=== PATIENT | male | born 1985 | race Caucasian/White ===

== ENCOUNTER 2017-05-08 18:05 | Inpatient (IN) | payer MEDICAID, OTHER ==
[~2017-05-08] VITALS: Ht 160 cm; Wt 67.1 kg
[2017-05-08] MEDS ORDERED: ONDANSETRON 4 MG INJ IV STA (19:45)
[2017-05-08] MEDS ORDERED: KETOROLAC 30 MG INJ IV STA (19:45)
--- NOTE | 2017-05-08 19:52 | ERD ---
ER Documentation Chief Complaint Chief Complaint abdominal pain + nausea,vomiting and diarrhea today HPI 32-year-old male presents emergency department for abdominal pain, nausea and vomiting that started today. Patient stated that his abdominal pain started to his epigastric area then now to his right lower abdominal area. He also complains of discomfort on walking due to his right lower abdominal pain. Denies headache, dizziness, blurred vision, neck pain, throat pain, difficulty swallowing, shoulder pain, chest pain, difficulty breathing when lying flat, coughing, constipation, urinary symptoms, loss of bowel and bladder control, recent travel, recent long travel, recent exposure to any illness, recent changes in diet, recent antibiotic use in the last 3 months, fever, chills. ROS All systems reviewed and are negative except as per history of present illness. Allergies Allergies: Coded Allergies: No Known Allergy (Unverified , 05/08/17) PMhx/Soc Medical and Surgical Hx: pt denies Medical Hx, pt denies Surgical Hx Hx Alcohol Use: No Hx Substance Use: No Hx Tobacco Use: No Smoking Status: Never smoker Physical Exam Vitals Vital Signs Date Time Temp Pulse Resp B/P Pulse Ox O2 Delivery O2 Flow Rate FiO2 05/08/17 18:09 98.5 78 18 124/82 98 Physical Exam Const: Alert. Awake. Not in respiratory or acute distress. Head: Atraumatic Eyes: Normal Conjunctiva ENT: Normal External Ears, Nose and Mouth. Neck: Full range of motion..~ No meningismus. Resp: Clear to auscultation bilaterally Cardio: Regular rate and rhythm, no murmurs Abd: Soft, non distended. Normal bowel sounds. There is no right upper/ epigastric/left upper/left lower abdominal tenderness and likely palpation. There is right lower abdominal tenderness to light and deep palpation. Positive on Rovsing sign. Positive on Peterson sign ([place] test). Skin: No petechiae or rashes Back: No midline or flank tenderness. No CVA tenderness. Ext: No cyanosis, or edema Neur: Awake and alert. No neurological deficits. Psych: Normal Mood and Affect Result Diagram: 05/08/17201405/08/172014 Results 24 hrs Laboratory Tests Test 05/08/17 20:07 05/08/17 20:15 Urine Color YELLOW Urine Clarity CLEAR Urine pH 5.0 [address] [place] 1.034 Urine Ketones NEGATIVEmg/dL Urine Nitrite NEGATIVEmg/dL Urine Bilirubin NEGATIVEmg/dL Urine Urobilinogen NEGATIVEmg/dL Urine Leukocyte Esterase NEGATIVELeu/ul Urine Microscopic RBC 2/HPF Urine Microscopic WBC 3/HPF Urine Mucus MODERATE/HPF Urine Hemoglobin NEGATIVEmg/dL Urine Glucose NEGATIVEmg/dL Urine Total Protein 1+mg/dl White Blood Count 14.910^3/ul Red Blood Count 5.2010^6/ul Hemoglobin 15.2g/dl Hematocrit 44.3% Mean Corpuscular Volume 85.2fl Mean Corpuscular Hemoglobin 29.2pg Mean Corpuscular Hemoglobin Concent 34.3g/dl Red Cell Distribution Width 12.6% Platelet Count 37616^3/UL Mean Platelet Volume 11.3fl Neutrophils % 91.0% Lymphocytes % 4.8% Monocytes % 3.7% Eosinophils % 0.0% Basophils % 0.1% Nucleated Red Blood Cells % 0.0/100WBC Neutrophils # 13.610^3/ul Lymphocytes # 0.710^3/ul Monocytes # 0.610^3/ul Eosinophils # 0.010^3/ul Basophils # 0.010^3/ul Nucleated Red Blood Cells # 0.010^3/ul Prothrombin Time 12.7Sec Prothrombin Time Ratio 1.0 INR International Normalized Ratio 0.94 Activated Partial Thromboplast Time 24.7Sec Sodium Level 141mmol/L Potassium Level 4.0mmol/L Chloride Level 99mmol/L Carbon Dioxide Level 29mmol/L Anion Gap 17 Blood Urea Nitrogen 20mg/dl Creatinine 0.82mg/dl Glucose Level 113mg/dl Calcium Level 9.6mg/dl Total Bilirubin 0.7mg/dl Direct Bilirubin 0.00mg/dl Indirect Bilirubin 0.7mg/dl Aspartate Amino Transf (AST/SGOT) 34IU/L Alanine Aminotransferase (ALT/SGPT) 31IU/L Alkaline Phosphatase 81IU/L Total Protein 7.9g/dl Albumin 4.8g/dl Globulin 3.10g/dl Albumin/Globulin Ratio 1.54 Amylase Level 63U/L Lipase 33U/L Current Medications Medications (Trade) Dose Ordered Sig/Ingrid Route PRN Reason Start Time Stop Time Status Last Admin Dose Admin Sodium Chloride (NS) 1,000 ml @ 1,000 mls/hr Q1H ONCE IV 05/08/17 20:00 05/08/17 20:59 DC 05/08/17 20:18 Ondansetron HCl (Zofran Inj) 4 mg ONCE STAT IV 05/08/17 19:45 05/08/17 19:49 DC 05/08/17 20:18 Ketorolac Tromethamine (Toradol) 30 mg ONCE STAT IV 05/08/17 19:45 05/08/17 19:49 DC 05/08/17 20:17 IV Flush 10 ml 10 ml STK-MED ONCE .ROUTE 05/08/17 21:02 05/08/17 21:03 DC 05/08/17 21:21 Sodium Chloride (NS) 100 ml @ ud STK-MED ONCE .ROUTE 05/08/17 21:02 05/08/17 21:03 DC 05/08/17 21:22 Iohexol (Omnipaque 300mg/ ml) 150 ml STK-MED ONCE .ROUTE 05/08/17 21:02 05/08/17 21:03 DC 05/08/17 21:22 Morphine Sulfate 4 mg 4 mg ONCE STAT IV 05/08/17 22:17 05/08/17 22:20 DC Piperacillin Sod/ Tazobactam Sod 50 ml @ 100 mls/hr ONCE STAT IVPB 05/08/17 22:17 05/08/17 22:46 Sodium Chloride (NS) 1,000 ml @ 75 mls/hr [id number] IV 05/08/17 22:30 Procedures/MDM Urinalysis: Reviewed. Blood works: Leukocytosis at 14.9. CT of the abdomen and pelvis with IV contrast: Tendon fluid-filled intrathecal appendix with infiltration of surrounding fat. Findings are suspicious for an acute nonruptured appendicitis. Treatment: IV insertion. Normal saline IV. Toradol IV. Zofran IV. Morphine IV. Normal saline 75 cc an hour. Zosyn 3.375 g IV. Kept n.p.o. Reevaluation: Relieve the pain. Final diagnosis: Appendicitis. Case and diagnostic test results was discussed with supervising emergency room physician, Dr. Kin Méndez who agreed with my medical decision making to admit the patient for appendicitis. He also stated that he will processed admission and will call the admitting physician and her surgeon. Departure Diagnosis: Primary Impression: Appendicitis KOJO CRANDALL May 08, 2017 19:52
[2017-05-08] MEDS ORDERED: SOD CHLORIDE 0.9% 1,000 ML IV ONE (20:00)
[2017-05-08 20:26] LABS: ADD UMIC YES; UR ASCORBIC ACID 40 mg/dL (NEGATIVE); UR BILIRUBIN (Dip) NEGATIVE (NEGATIVE); UR BLOOD (Dip) NEGATIVE (NEGATIVE); UR CLARITY CLEAR (CLEAR); UR COLOR YELLOW (YELLOW); UR GLUCOSE (Dip) NEGATIVE (NEGATIVE); UR KETONES (Dip) NEGATIVE (NEGATIVE); UR LEUKOCYTE ESTERASE (Dip) NEGATIVE Leu/ul (NEGATIVE); UR MUCUS MODERATE /HPF (NONE SEEN); UR NITRITE (Dip) NEGATIVE (NEGATIVE); UR RBC 2 /HPF (0-5); UR SPECIFIC GRAVITY (Dip) 1.034 (1.003-1.030); UR TOTAL PROTEIN (Dip) 1+ mg/dl (NEGATIVE); UR UROBILINOGEN (Dip) NEGATIVE (NEGATIVE)
[2017-05-08 20:34] LABS: BASOPHILS % 0.1 % (0.0-2.0); HEMATOCRIT 44.3 % (42.0-52.0); HEMOGLOBIN 15.2 g/dl (14.0-18.0); LYMPHOCYTES # 0.7 10^3/ul (0.8-2.9); LYMPHOCYTES % 4.8 % (15.0-51.0); MEAN CORPUSCULAR HEMOGLOBIN 29.2 pg (29.0-33.0); MEAN CORPUSCULAR HGB CONC 34.3 g/dl (32.0-37.0); MEAN CORPUSCULAR VOLUME 85.2 fl (82.0-101.0); MEAN PLATELET VOLUME 11.3 fl (7.4-10.4); MONOCYTE # 0.6 10^3/ul (0.3-0.9); MONOCYTES % 3.7 % (0.0-11.0); NEUTROPHIL # 13.6 10^3/ul (1.6-7.5); PLATELET COUNT 237 10^3/UL (140-415); RED CELL DISTRIBUTION WIDTH 12.6 % (11.5-14.5); WHITE BLOOD COUNT 14.9 10^3/ul (4.8-10.8)
[2017-05-08 20:49] LABS: INR 0.94; PROTIME 12.7 Sec (11.9-14.9)
[2017-05-08 20:50] LABS: PARTIAL THROMBOPLASTIN TIME 24.7 Sec (25.0-35.0)
[2017-05-08 20:55] LABS: ALBUMIN 4.8 g/dl (3.3-4.9); ALBUMIN/GLOBULIN RATIO 1.54; BILIRUBIN,INDIRECT 0.7 mg/dl (0-1.1); BILIRUBIN,TOTAL 0.7 mg/dl (0.2-1.3); CALCIUM 9.6 mg/dl (8.4-10.2); CREATININE 0.82 mg/dl (0.61-1.24); TOTAL PROTEIN 7.9 g/dl (6.1-8.1)
[2017-05-08] MEDS ORDERED: IOHEXOL 300MG/ML 150 ML BTL ONE (21:02)
[2017-05-08] MEDS ORDERED: SOD CHLORIDE 0.9% 100 ML ONE (21:02)
--- NOTE | 2017-05-08 21:40 | RADRPT ---
PROCEDURE: CT abdomen and pelvis with contrast. CLINICAL INDICATION: Abdominal Pain TECHNIQUE: CT scan of the abdomen and pelvis without oral contrast was performed and is reconstruc wen at 2.5 mm contiguous axial intervals from the dome of the diaphragm to the inferior pubic rami.. The patient was scanned without intravenous contrast. Sagittal and coronal reformatted images wer e obtained from the axial source images. The calculated radiation dose measures the 397 mGy centimet ers. The CTDI measures 7.5 mGy. Individualized dose optimization technique was used for the performance of this exam. This included 1. Automated exposure control. 2. Adjustment of the mA and / or kV according to the patient's size. 3. Use of iterative reconstructed technique. COMPARISON: None FINDINGS: The lung bases are clear of any infiltrate or nodule. No effusion is seen. The liver is of normal size, contour and attenuation with no mass or ductal dilatation. No gallston es are visualized. No splenic, adrenal or pancreatic abnormalities present. Kidneys enhance symmetrically and are of normal size and contour. No hydronephrosis, calculus or m asses seen. Ureters are of normal course and caliber with no stone. No bladder mass or stone is pr esent. Prostate and seminal vesicles are normal. There is no aneurysm. No adenopathy is present. No bowel mass or obstruction is present. The appendix is located inferior to the cecum. It is dis tended measuring 10 mm in diameter and there is mural enhancement. There is mild infiltration of the surrounding periappendiceal fat. No calcified appendicolith is seen and there is no pneumoperitoneu m.. No phlegmon, ascites or pneumoperitoneum is visualized. The osseous structures are intact. IMPRESSION: Distended fluid filled infracecal appendix with infiltration of surrounding fat. Findings are suspic ious for a acute non ruptured appendicitis. .Jasvir Norman MD, MD Date Time Electronically viewed and signed by .Jasvir Norman MD, on 05/08/2017 21:40 .A/
[2017-05-08] MEDS ORDERED: morphine 4 MG/ML VIAL IV STA (22:17)
[2017-05-08] MEDS ORDERED: PIPER-TAZO 3.375 GM IV (PMX) 50 ML IVPB STA (22:17)
[2017-05-08] MEDS: SOD CHLORIDE 0.9% 1,000 ML IV SCH (22:40)
[2017-05-09] VITALS (22 sets, daily range): BP systolic 99–126; BP diastolic 58–76; PULSE 66–82; RESP 16–24; TEMP 98; Ht 160 cm; Wt 67.1 kg
[2017-05-09] MEDS: SOD CHLORIDE 0.9% 1,000 ML IV SCH ×3 (00:37→13:07)
[2017-05-09] MEDS ORDERED: morphine 2 MG INJ IV PRN ×2 (01:00→19:30)
[2017-05-09] MEDS ORDERED: DOCUSATE SODIUM 100 MG CAP PO PRN (01:00)
[2017-05-09] MEDS ORDERED: BISACODYL (EC) 5 MG TAB PO PRN (01:00)
[2017-05-09] MEDS ORDERED: ACETAMINOPHEN 325 MG TAB PO PRN (01:00)
[2017-05-09] MEDS ORDERED: NACL 0.9% 3 ML SYG IV SCH (01:00)
--- NOTE | 2017-05-09 03:41 | HP ---
Date/Time of Note Date/Time of Note DATE: 05/09/17 TIME: 03:38 Assessment/Plan VTE Prophylaxis VTE Prophylaxis Intervention: SCD's Assessment/Plan Chief Complaint/Hosp Course This is a 32-year-old male being admitted to the [facility] floor for: #1 acute appendicitis: At the current time we will keep the patient n.p.o. Provide the patient with IV fluid maintenance with normal saline, pain control with IV pain medications, Zosyn every 6 hours, the on-call surgeon has been contacted via the ED. #2 questionable history of enlarged heart: Patient is a current time denies any issues. He states that he works out/exercises without any issues. He can walk up and down stairs and perform various exercises and activities without any difficulty or chest pain or shortness of breath.. Denies any chest pain or shortness of breath during vigorous activity. Further workup indicated at this time, I feel this can be managed as an outpatient if indicated. He does not have any chest pain or shortness of breath or or any signs of cardiac dysfunction clinically at this time. #3 DVT and GI prophylaxis: SCDs, no GI prophylaxis indicated Further treatment strategy will be implemented as per the clinical course Problems: HPI/ROS Admit Date/Time Admit Date/Time May 08, 2017 at 22:59 Hx of Present Illness CC: Abdominal, pain nausea vomiting This is a 32-year-old male presents emergency department for abdominal pain, nausea and vomiting that started today. Patient stated that his abdominal pain started to his epigastric area then now to his right lower abdominal area. He also complains of discomfort on walking due to his right lower abdominal pain. Denies headache, dizziness, blurred vision, neck pain, throat pain, difficulty swallowing, shoulder pain, chest pain, difficulty breathing when lying flat, coughing, constipation, urinary symptoms, loss of bowel and bladder control, recent travel, recent long travel, recent exposure to any illness, recent changes in diet, recent antibiotic use in the last 3 months, fever, chills. Allergies: NKDA Medications: ROS Const: As per HPI Eyes : No pain discharge or redness or change in visual acuity ENT: No pain, sore throat, congestion, congestion, dysphagia or discharge Respiratory: No shortness of breath, cough, sputum, wheezing, or pleuritic pain Cardiovascular: No chest pain, palpitation, PND, or edema GI : As per HPI Genitourinary: No dysuria, hematuria, flank pain , discharge or CVA tenderness Musculoskeletal: No joint pain, back pain, neck pain, restricted range of motion in neck or joints Skin: No rash, bruising or hives Neuro: No headache, dizziness, syncope, seizure, focal weakness Endocrine: No polyuria, polydipsia, temperature intolerance Psych: No hallucination, depression, anxiety or suicidal ideation PMH/Family/Social Past Medical History Enlarged heart? Past Surgical History Past Surgical Hx: no surgical history Family History Significant Family History: no pertinent family hx Social History Alcohol Use: none Smoking Status: Never smoker Drug Use: none Exam/Review of Systems Vital Signs Vitals Vital Signs Date Time Temp Pulse Resp B/P Pulse Ox O2 Delivery O2 Flow Rate FiO2 05/09/17 00:57 98.8 64 16 109/68 98 05/09/17 00:33 Room Air Exam Exam General: She is currently lying in bed in no acute distress. His pain at this time is controlled. HEENT: Atraumatic, normocephalic. The pupils are equal, round and reactive. Extraocular motor are intact Neck: Supple with full range of motion. No rigidity or meningismus Chest: Nontender Lungs: Clear to auscultation bilaterally no crackles rales or wheezing Heart: Normal S1-S2, Regular rhythm and rate. No overt murmurs appreciated Abdomen: Soft, tenderness to palpation of the right lower quadrant, abdomen nondistended, normal bowel sounds. Extremities: Normal to inspection, no edema no cyanosis Neurologic: Normal mental status, speech normal, cranial nerves II through XII are intact, motor and sensory are intact, no focal weakness Additional Comments PROCEDURE: CT abdomen and pelvis with contrast. CLINICAL INDICATION: Abdominal Pain TECHNIQUE: CT scan of the abdomen and pelvis without oral contrast was performed and is reconstructed at 2.5 mm contiguous axial intervals from the dome of the diaphragm to the inferior pubic rami.. The patient was scanned without intravenous contrast. Sagittal and coronal reformatted images were obtained from the axial source images. The calculated radiation dose measures the 397 mGy centimeters. The CTDI measures 7.5 mGy. Individualized dose optimization technique was used for the performance of this exam. This included 1. Automated exposure control. 2. Adjustment of the mA and / or kV according to the patient's size. 3. Use of iterative reconstructed technique. COMPARISON: None FINDINGS: The lung bases are clear of any infiltrate or nodule. No effusion is seen. The liver is of normal size, contour and attenuation with no mass or ductal dilatation. No gallstones are visualized. No splenic, adrenal or pancreatic abnormalities present. Kidneys enhance symmetrically and are of normal size and contour. No hydronephrosis, calculus or masses seen. Ureters are of normal course and caliber with no stone. No bladder mass or stone is present. Prostate and seminal vesicles are normal. There is no aneurysm. No adenopathy is present. No bowel mass or obstruction is present. The appendix is located inferior to the cecum. It is distended measuring 10 mm in diameter and there is mural enhancement. There is mild infiltration of the surrounding periappendiceal fat. No calcified appendicolith is seen and there is no pneumoperitoneum.. No phlegmon, ascites or pneumoperitoneum is visualized. The osseous structures are intact. IMPRESSION: Distended fluid filled infracecal appendix with infiltration of surrounding fat. Findings are suspicious for a acute non ruptured appendicitis. .Jasvir Norman MD, MD Date Time Electronically viewed and signed by .Jasvir Norman MD, MD on 05/08/2017 21: 40 .A/ CC: KOJO CRANDALL Labs Result Diagram: 05/08/17201405/08/172014 Medications Medications Current Medications Sodium Chloride 1,000 ml @ 75 mls/hr [id number] IV Last administered on t 22:40; Admin Dose 75 MLS/HR; Start 05/08/17 at 22:30 Sodium Chloride (NS) 1,000 ml @ 80 mls/hr [id number] IV ; Start 05/09/17 at 00:37 Acetaminophen (Tylenol Tab) 650 mg Q6H PRN PO PAIN LEVEL 1-3 OR FEVER; Start 05/09/17 at 01:00 Morphine Sulfate (morphine) 2 mg Q4H PRN IV SEVERE PAIN LEVEL 7-10; Start 12/ 18/17 at 01:00 Docusate Sodium (Colace) 100 mg Q12H PRN PO CONSTIPATION; Start 05/09/17 at 01 :00 Bisacodyl 5 mg 5 mg DAILY PRN PO CONSTIPATION; Start 05/09/17 at 01:00 Piperacillin Sod/ Tazobactam Sod (Zosyn 3.375gm/ 50 ml (Pmx)) 50 ml @ 100 mls/ hr Q6 IVPB ; Start 05/09/17 at 06:00 MOLLY KELLEY May 09, 2017 03:41
[2017-05-09] MEDS: PIPER-TAZO 3.375 GM IV (PMX) 50 ML IVPB SCH ×4 (05:17→23:49)
[2017-05-09] MEDS ORDERED: ROCURONIUM 50 MG INJ ONE (07:00)
[2017-05-09] MEDS ORDERED: LIDOCAINE 2% (SDV) 5 ML INJ ONE (07:00)
--- NOTE | 2017-05-09 12:27 | PN ---
Date/Time of Note Date/Time of Note DATE: 05/09/17 TIME: 12:24 Assessment/Plan VTE Prophylaxis VTE Prophylaxis Intervention: ambulation Lines/Catheters IV [facility]): Peripheral IV Assessment/Plan Chief Complaint/Hosp Course 32-year-old male with no significant past medical history, presented to the emergency room for evaluation of sudden onset of epigastric and right lower quadrant pain who also noted with acute appendicitis. 1. Acute appendicitis. Status: Acute -Surgery on board and plan is laparoscopic versus open appendectomy today at 5 PM. -Continue n.p.o. status, IV fluids, pain meds and IV antibiotics. -Postoperative diet, antibiotics and anticoagulation per surgery 2. Leukocytosis secondary to #1. Status: Acute -Treatment as above. Patient was seen in collaboration with Problems: Subjective 24 Hr Interval Summary Free Text/Dictation Patient continued to have right lower quadrant abdominal pain. No nausea, vomiting or fevers. Patient is scheduled for laparoscopic versus open appendectomy today at 5 PM. Exam/Review of Systems Vital Signs Vitals Vital Signs Date Time Temp Pulse Resp B/P Pulse Ox O2 Delivery O2 Flow Rate FiO2 05/09/17 08:06 98.5 63 18 99/58 97 05/09/17 05:17 Room Air Intake and Output 05/08/17 05/08/17 05/09/17 15:00 23:00 07:00 Intake Total 550 ml Output Total 420 ml Balance 130 ml Exam General: Well developed,adequately built young male, not in any acute distress . HEENT: Normocephalic, Atraumatic, No laceration or hematoma; Eyes: PEERL, Conjunctiva clear, Anicteric sclera Neck: Supple without any lymphadenopathy, nontender, no JVD, no carotid bruits, trachea midline, no thyromegaly Cardiac: S1, S2 auscultated, regular rhythm and rate, no mumurs or gallop Pulmonary: Normal respiratory effort. Chest clear to auscultation bilaterally, no adventitious breath sounds GI: With epigastric and right lower quadrant tenderness. Otherwise abdomen normal to inspection. Soft, non- distended, no masses, no rebound tenderness or guarding. Bowel sounds active on all four quadrants Genitourinary: Deferred Extremities: No cyanosis, clubbing, or edema. Pulses [2+] bilaterally. Full ROM on all four extremities. No focal weakness appreciated. Neurologic: Alert to person, place, time, and situation. Affect appropriate, intact sensation. Skin: Clean,dry, and intact. No ecchymosis, no rashes, or lesions Results Result Diagram: 05/08/17201405/08/172014 Results 24 hrs Laboratory Tests Test 05/08/17 20:07 05/08/17 20:15 Urine Color YELLOW Urine Clarity CLEAR Urine pH 5.0 Urine Specific [place] 1.034 H Urine Ketones NEGATIVE Urine Nitrite NEGATIVE Urine Bilirubin NEGATIVE Urine Urobilinogen NEGATIVE Urine Leukocyte Esterase NEGATIVE Urine Microscopic RBC 2 Urine Microscopic WBC 3 Urine Mucus MODERATE Urine Hemoglobin NEGATIVE Urine Glucose NEGATIVE Urine Total Protein 1+ H White Blood Count 14.9 H Red Blood Count 5.20 Hemoglobin 15.2 Hematocrit 44.3 Mean Corpuscular Volume 85.2 Mean Corpuscular Hemoglobin 29.2 Mean Corpuscular Hemoglobin Concent 34.3 Red Cell Distribution Width 12.6 Platelet Count 237 Mean Platelet Volume 11.3 H Neutrophils % 91.0 H Lymphocytes % 4.8 L Monocytes % 3.7 Eosinophils % 0.0 Basophils % 0.1 Nucleated Red Blood Cells % 0.0 Neutrophils # 13.6 H Lymphocytes # 0.7 L Monocytes # 0.6 Eosinophils # 0.0 Basophils # 0.0 Nucleated Red Blood Cells # 0.0 Prothrombin Time 12.7 Prothrombin Time Ratio 1.0 INR International Normalized Ratio 0.94 Activated Partial Thromboplast Time 24.7 L Sodium Level 141 Potassium Level 4.0 Chloride Level 99 Carbon Dioxide Level 29 Anion Gap 17 H Blood Urea Nitrogen 20 Creatinine 0.82 Glucose Level 113 Calcium Level 9.6 Total Bilirubin 0.7 Direct Bilirubin 0.00 Indirect Bilirubin 0.7 Aspartate Amino Transf (AST/SGOT) 34 Alanine Aminotransferase (ALT/SGPT) 31 Alkaline Phosphatase 81 Total Protein 7.9 Albumin 4.8 Globulin 3.10 Albumin/Globulin Ratio 1.54 Amylase Level 63 Lipase 33 Medications Medications Current Medications Sodium Chloride 1,000 ml @ 75 mls/hr [id number] IV Last administered on t 11:41; Admin Dose 75 MLS/HR; Start 05/08/17 at 22:30 Sodium Chloride (NS) 1,000 ml @ 80 mls/hr [id number] IV ; Start 05/09/17 at 00:37 Acetaminophen (Tylenol Tab) 650 mg Q6H PRN PO PAIN LEVEL 1-3 OR FEVER; Start 05/09/17 at 01:00 Morphine Sulfate (morphine) 2 mg Q4H PRN IV SEVERE PAIN LEVEL 7-10; Start at 01:00 Docusate Sodium (Colace) 100 mg Q12H PRN PO CONSTIPATION; Start 05/09/17 at 01 :00 Bisacodyl 5 mg 5 mg DAILY PRN PO CONSTIPATION; Start 05/09/17 at 01:00 Piperacillin Sod/ Tazobactam Sod (Zosyn 3.375gm/ 50 ml (Pmx)) 50 ml @ 100 mls/ hr Q6 IVPB Last administered on 05/09/17t 11:41; Admin Dose 100 MLS/HR; Start 05/09/17 at 06:00 FELIX HERNANDEZ NP May 09, 2017 12:27
--- NOTE | 2017-05-09 18:05 | CONS ---
Date/Time of Note Date/Time of Note DATE: 05/09/17 TIME: 18:02 Assessment/Plan Assessment/Plan Additional Assessment/Plan Acute appendicitis Plan: Laparoscopic appendectomy possible open. I discussed the procedure, outcomes, expectations, alternatives and risks in detail with the patient who has an excellent understanding of the nature of his illness and agrees to the proposed plan of therapy as outlined. Consultation Date/Type/Reason Admit Date/Time May 08, 2017 at 22:59 Date of Consultation: May 09, 2017 Reason for Consultation Acute appendicitis Hx of Present Illness The patient is an otherwise healthy 32-year-old male who presents to the emergency room with a 1 day history of abdominal pain which intensified in severity, then localized to the right lower quadrant. In the emergency room he was noted to have a tender right lower quadrant, and elevated white blood cell count, and a CT which was compatible with acute appendicitis. The patient is admitted and surgical consultation is requested in that regard. Constitutional: no complaints Eyes: no complaints ENT: no complaints Respiratory: no complaints Cardiovascular: no complaints Gastrointestinal: no complaints, pain (Right lower quadrant) Genitourinary: no complaints Skin: no complaints Neurologic: no complaints Endocrine: no complaints Lymphatic: no complaints Psychological: no complaints Immunologic: no complaints Past Medical History Medical History: no pertinent history Past Surgical History Past Surgical Hx: no surgical history Family History Significant Family History: no pertinent family hx Social History Alcohol Use: none Smoking Status: Never smoker Drug Use: none Exam/Review of Systems Vital Signs Vitals Vital Signs Date Time Temp Pulse Resp B/P Pulse Ox O2 Delivery O2 Flow Rate FiO2 05/09/17 08:06 98.5 63 18 99/58 97 05/09/17 05:17 Room Air Intake and Output 05/08/17 05/08/17 05/09/17 14:59 22:59 06:59 Intake Total 550 ml Output Total 420 ml Balance 130 ml Exam Constitutional: alert, oriented Psych: no complaints Head: normocephalic Eyes: nl conjunctiva ENMT: nl external ears & nose Neck: supple Respiratory: clear to auscultation Cardiovascular: regular rate and rhythm Gastrointestinal: tender (Tender right lower quadrant with guarding and no rebound) Musculoskeletal: nl extremities to inspection Extremities: normal pulses Skin: nl turgor Lymph: nl lymph nodes Results Result Diagram: 05/08/17201405/08/172014 Results 24 hrs Laboratory Tests Test 05/08/17 20:07 05/08/17 20:15 Urine Color YELLOW Urine Clarity CLEAR Urine pH 5.0 Urine Specific [place] 1.034 H Urine Ketones NEGATIVE Urine Nitrite NEGATIVE Urine Bilirubin NEGATIVE Urine Urobilinogen NEGATIVE Urine Leukocyte Esterase NEGATIVE Urine Microscopic RBC 2 Urine Microscopic WBC 3 Urine Mucus MODERATE Urine Hemoglobin NEGATIVE Urine Glucose NEGATIVE Urine Total Protein 1+ H White Blood Count 14.9 H Red Blood Count 5.20 Hemoglobin 15.2 Hematocrit 44.3 Mean Corpuscular Volume 85.2 Mean Corpuscular Hemoglobin 29.2 Mean Corpuscular Hemoglobin Concent 34.3 Red Cell Distribution Width 12.6 Platelet Count 237 Mean Platelet Volume 11.3 H Neutrophils % 91.0 H Lymphocytes % 4.8 L Monocytes % 3.7 Eosinophils % 0.0 Basophils % 0.1 Nucleated Red Blood Cells % 0.0 Neutrophils # 13.6 H Lymphocytes # 0.7 L Monocytes # 0.6 Eosinophils # 0.0 Basophils # 0.0 Nucleated Red Blood Cells # 0.0 Prothrombin Time 12.7 Prothrombin Time Ratio 1.0 INR International Normalized Ratio 0.94 Activated Partial Thromboplast Time 24.7 L Sodium Level 141 Potassium Level 4.0 Chloride Level 99 Carbon Dioxide Level 29 Anion Gap 17 H Blood Urea Nitrogen 20 Creatinine 0.82 Glucose Level 113 Calcium Level 9.6 Total Bilirubin 0.7 Direct Bilirubin 0.00 Indirect Bilirubin 0.7 Aspartate Amino Transf (AST/SGOT) 34 Alanine Aminotransferase (ALT/SGPT) 31 Alkaline Phosphatase 81 Total Protein 7.9 Albumin 4.8 Globulin 3.10 Albumin/Globulin Ratio 1.54 Amylase Level 63 Lipase 33 Medications Medications Current Medications Sodium Chloride 1,000 ml @ 75 mls/hr [id number] IV Last administered on t 11:41; Admin Dose 75 MLS/HR; Start 05/08/17 at 22:30 Sodium Chloride (NS) 1,000 ml @ 80 mls/hr [id number] IV ; Start 05/09/17 at 00:37 Acetaminophen (Tylenol Tab) 650 mg Q6H PRN PO PAIN LEVEL 1-3 OR FEVER; Start 05/09/17 at 01:00 Morphine Sulfate (morphine) 2 mg Q4H PRN IV SEVERE PAIN LEVEL 7-10; Start at 01:00 Docusate Sodium (Colace) 100 mg Q12H PRN PO CONSTIPATION; Start 05/09/17 at 01 :00 Bisacodyl 5 mg 5 mg DAILY PRN PO CONSTIPATION; Start 05/09/17 at 01:00 Piperacillin Sod/ Tazobactam Sod (Zosyn 3.375gm/ 50 ml (Pmx)) 50 ml @ 100 mls/ hr Q6 IVPB Last administered on 05/09/17t 11:41; Admin Dose 100 MLS/HR; Start 05/09/17 at 06:00 RAMIREZ BROCK MD May 09, 2017 18:05
[2017-05-09] MEDS ORDERED: BUPIVACAINE 0.25%/EPI (SDV) 30 ML INJ ONE (18:14)
[2017-05-09] MEDS ORDERED: FENTAnyl 50 MCG/ML VIAL ONE (18:24)
[2017-05-09] MEDS ORDERED: HYDROmorphONE (0.2 MG/ML) 10ML SYG IV PRN ×3 (18:30)
[2017-05-09] MEDS ORDERED: LABETALOL HCL 20MG INJ IV PRN (18:30)
[2017-05-09] MEDS ORDERED: FENTAnyl 50 MCG/ML VIAL IV PRN ×3 (18:30)
[2017-05-09] MEDS ORDERED: ONDANSETRON 4 MG INJ IV PRN ×2 (18:30→19:30)
[2017-05-09] MEDS ORDERED: hydrALAzine 20 MG INJ IV PRN (18:30)
[2017-05-09] MEDS ORDERED: KETOROLAC 30 MG INJ IV PRN (18:30)
[2017-05-09] MEDS ORDERED: DIPHENHYDRAMINE 50 MG INJ IV PRN (18:30)
[2017-05-09] MEDS ORDERED: MIDAZOLAM 1 MG/ML 2 ML INJ IV PRN (18:30)
[2017-05-09] MEDS ORDERED: METOCLOPRAMIDE 10 MG INJ IV PRN (18:30)
[2017-05-09] MEDS ORDERED: MEPERIDINE 25 MG INJ IV PRN (18:30)
[2017-05-09] MEDS ORDERED: EPHEDrine SULFATE 50 MG/5 ML SYG IV PRN (18:30)
[2017-05-09] MEDS ORDERED: ALBUTEROL 0.083% (NEB) 2.5 MG/3 ML AMP HHN PRN (18:30)
[2017-05-09] MEDS ORDERED: PROPOFOL 20 ML ONE (18:49)
[2017-05-09] MEDS ORDERED: DEXAMETHASONE 4 MG/ML 1 ML INJ ONE (18:49)
[2017-05-09] MEDS ORDERED: ONDANSETRON 4 MG INJ ONE (18:50)
[2017-05-09] MEDS ORDERED: SUGAMMADEX SODIUM 200 MG/2 ML VIAL IV ONE (18:51)
--- NOTE | 2017-05-09 19:12 | OPR ---
Date/Time of Note Date/Time of Note DATE: 05/09/17 TIME: 19:07 Operative Report Procedure Date: May 09, 2017 Preoperative Diagnosis Acute appendicitis Postoperative Diagnosis Acute appendicitis with localized peritonitis Operation/Procedure Performed Laparoscopic appendectomy Surgeon Ramirez Brock MD Glaciologist None Anesthesia Type: general Anesthesiologist: GERHARD PERKINS Estimated Blood Loss: 0 - 10 ml's Transfusion none Specimen Appendix Grafts/Implants none Tubes/Drains None Complications none Pt Condition Post Procedure: stable Disposition: PACU Indications Localized peritonitis Procedure Description After satisfactory general endotracheal anesthesia was achieved, the abdomen was prepped and draped in the usual fashion. The abdomen was insufflated with carbon dioxide through an umbilical Veress needle to 15 mmHg pressure. The Veress needle was removed and the umbilical incision extended to 5 mm through which a 5 mm trocar was placed. A 5 mm 0 lens was placed. Laparoscopy showed an acutely inflamed intraperitoneal appendix with localized peritonitis. Under direct visualization a 5 mm suprapubic trocar was placed as well as a 12 mm trocar midway between the umbilicus and the xiphoid. A window was made in the mesoappendix through which a vascular stapler was placed across the base of the cecum, closed and fired disconnecting the appendix from the cecum. The edge of the staple line was at the cecum was attached this was divided over 2 hemoclips. The mesoappendix was divided with a second firing of the vascular linear cutter. The appendix was placed intact into an Endo Catch and removed via the 12 mm trocar site. The abdomen was then desufflated and the trochars were removed. The skin punctures were infiltrated with 30 cc of 0.25% Marcaine with epinephrine and closed with khari. Sponge and needle counts were reported as correct 2. The patient tolerated the procedure well and without incident or complication.. Hemostasis was total. The abdomen was then desufflated and the trochars were removed. The fascia of the 12 mm port was closed with a #1 Vicryl placed with the assistance of a Antonio Crowe device RAMIREZ BROCK MD May 09, 2017 19:12
[2017-05-09] MEDS ORDERED: OXYCODONE/ACETAMINOPHEN (5/325) TAB PO PRN ×2 (19:30)
[2017-05-10 00:45] VITALS: BP 107/60; PULSE 62; RESP 18
[2017-05-10] MEDS: SOD CHLORIDE 0.9% 1,000 ML IV SCH ×2 (01:10→01:37)
[2017-05-10 05:00] VITALS: BP 116/67; PULSE 63; RESP 18
[2017-05-10] MEDS: PIPER-TAZO 3.375 GM IV (PMX) 50 ML IVPB SCH ×2 (05:31→12:00)
[2017-05-10 06:22] LABS: BASOPHILS % 0.1 % (0.0-2.0); HEMATOCRIT 43.1 % (42.0-52.0); HEMOGLOBIN 14.3 g/dl (14.0-18.0); LYMPHOCYTES # 0.8 10^3/ul (0.8-2.9); LYMPHOCYTES % 10.3 % (15.0-51.0); MEAN CORPUSCULAR HEMOGLOBIN 29.4 pg (29.0-33.0); MEAN CORPUSCULAR HGB CONC 33.2 g/dl (32.0-37.0); MEAN CORPUSCULAR VOLUME 88.5 fl (82.0-101.0); MEAN PLATELET VOLUME 11.9 fl (7.4-10.4); MONOCYTE # 0.3 10^3/ul (0.3-0.9); MONOCYTES % 3.4 % (0.0-11.0); NEUTROPHIL # 6.6 10^3/ul (1.6-7.5); NEUTROPHILS % 85.9 % (39.0-77.0); PLATELET COUNT 216 10^3/UL (140-415); RED BLOOD COUNT 4.87 10^6/ul (4.70-6.10); RED CELL DISTRIBUTION WIDTH 12.5 % (11.5-14.5); WHITE BLOOD COUNT 7.7 10^3/ul (4.8-10.8)
[2017-05-10 07:12] LABS: ALBUMIN 3.8 g/dl (3.3-4.9); ALBUMIN/GLOBULIN RATIO 1.26; BILIRUBIN,INDIRECT 0.7 mg/dl (0-1.1); BILIRUBIN,TOTAL 0.7 mg/dl (0.2-1.3); CALCIUM 9.2 mg/dl (8.4-10.2); CHOL/HDL RATIO 2.8 RATIO; CREATININE 0.84 mg/dl (0.61-1.24); MAGNESIUM 1.8 mg/dl (1.7-2.5); POTASSIUM 4.3 mmol/L (3.5-5.1); TOTAL PROTEIN 6.8 g/dl (6.1-8.1)
[2017-05-10 07:30] LABS: THYROID STIMULATING HORMONE 0.177 MIU/L (0.465-4.680)
[2017-05-10 08:00] VITALS: BP 105/64; RESP 17
--- NOTE | 2017-05-10 08:04 | PN ---
Date/Time of Note Date/Time of Note DATE: 05/10/17 TIME: 08:03 Assessment/Plan Lines/Catheters IV [facility] (from [facility]): Peripheral IV Assessment/Plan Chief Complaint/Hosp Course The patient is an otherwise healthy 32-year-old male who presents to the emergency room with a 1 day history of abdominal pain which intensified in severity, then localized to the right lower quadrant. In the emergency room he was noted to have a tender right lower quadrant, and elevated white blood cell count, and a CT which was compatible with acute appendicitis. The patient is admitted and surgical consultation is requested in that regard. Problems: Assessment/Plan Abdominal examination is benign Leukocytosis resolved Cleared for discharge home today Office follow-up 1 week Subjective 24 Hr Interval Summary Postoperative day #1 Markedly symptomatically improved Exam/Review of Systems Vital Signs Vitals Vital Signs Date Time Temp Pulse Resp B/P Pulse Ox O2 Delivery O2 Flow Rate FiO2 05/10/17 05:00 99.0 63 18 116/67 99 Room Air Intake and Output 05/09/17 05/09/17 05/10/17 15:00 23:00 07:00 Intake Total 1000 ml 400 ml 1325 ml Output Total 610 ml 700 ml Balance 1000 ml -210 ml 625 ml Results Result Diagram: 05/10/17 0445 05/10/17 0445 RAMIREZ BROCK MD May 10, 2017 08:04
--- NOTE | 2017-05-10 10:20 | PDOCDIS ---
Discharge Instructions CONDITION Patient Condition: Stable HOME CARE INSTRUCTIONS: Special Diet: REGULAR FOLLOW UP/APPOINTMENTS Follow-up Plan Follow-up with Dr. Hart in 1 week. [address] [facility] [address] [place] [address] Office Post operative Instructions *Do not lift anything more than 25 pounds for 6 to 8 weeks *Do not swim or take hot tub bath for 2weeks *Remove dressing and May shower-Use mild soap around site and pat dry *If you notice any oozing, bleeding or other drainage or having fever or chills from site please contact Surgeon's office-If unable to get office, you may go to nearest emergency room 1.Follow up with primary care physician in 1 week If you don't have one please let someone know, we can give you resources that may help you pick one. You may also call your insurance company to assign one to you. Review your medication list with your nurse before leaving and if you need new prescriptions please let your nurse know. I may have made changes to your home medications or given you new prescriptions, please let your primary doctor know as well. Stay compliant with your medications and report any side effects to your PCP or pharmacist. Return to the ER if you have any concerns and cannot reach your doctors or call your insurance company, they usually have a nurse that can help you. 2. Call 911 or go to the nearest emergency room if experiencing loss of consciousness, dizziness, chest pain, shortness of breath, vomiting/abdominal pain, speech difficulties, motor weakness or any unusual symptoms. FELIX HERNANDEZ NP May 10, 2017 10:19
[2017-05-10] MEDS ORDERED: DOCU-144 PO (10:24)
[2017-05-10] MEDS ORDERED: HYDR-906 PO (10:24)
[2017-05-10] MEDS ORDERED: CEPH500C PO (10:24)
--- NOTE | 2017-05-10 10:48 | DS ---
Date/Time of Note Date/Time of Note DATE: 05/10/17 TIME: 10:44 Discharge Summary Admission/Discharge Info Admit Date/Time May 08, 2017 at 22:59 Discharge Date/Time Discharge Diagnosis 32-year-old male with no significant past medical history, presented to the emergency room for evaluation of sudden onset of epigastric and right lower quadrant pain who also noted with acute appendicitis. 1. Acute appendicitis. Status post laparoscopic appendectomy on 05/09/2017. 2. Leukocytosis secondary to #1. Resolved Patient Condition: Stable Consults Dr. Hart, surgery Procedures 05/08/2017. CT abdomen and pelvis. IMPRESSION: Distended fluid filled infracecal appendix with infiltration of surrounding fat. Findings are suspicious for a acute non ruptured appendicitis. Operation performed: 05/09/2017. Laparoscopic appendectomy. Postoperative finding: acute appendicitis with localized peritonitis. Hospital Course This is a 32-year-old male with no significant past medical history, presented to the emergency room for evaluation of sudden onset of epigastric and right lower quadrant pain who also noted with acute appendicitis. Patient was admitted to medical surgical floor and was treated with IV fluids, pain medication and IV antibiotics. On 05/09/2017, patient had undergone laparoscopic appendectomy. Postoperatively, patient did well. He did not have any further leukocytosis or fever. As per surgery recommendation, patient also had localized peritonitis in operative findings. At this time, he is medically stable for discharge with outpatient follow-up with surgery recommendation. Patient did not have any drain placed with surgery. At this time, patient is feeling back to his baseline. His vital signs and labs remain unremarkable. Patient is tolerating diet and ambulation. Recommendation is to send patient home with 5 more days on Keflex as localized peritonitis was noted. Patient to follow-up with his surgeon in 1 week. Patient verbalized discharge instructions. Approximately 60 minute was spent in coordinating the discharge on this patient. Patient is seen in collaboration with . Follow-up Plan Follow-up with Dr. Hart in [address] [place] [address] [place] [id number] Office Post operative Instructions *Do not lift anything more than 25 pounds for 6 to 8 weeks *Do not swim or take hot tub bath for 2weeks *Remove dressing and May shower-Use mild soap around site and pat dry *If you notice any oozing, bleeding or other drainage or having fever or chills from site please contact Surgeon's office-If unable to get office, you may go to nearest emergency room 1.Follow up with primary care physician in 1 week If you don't have one please let someone know, we can give you resources that may help you pick one. You may also call your insurance company to assign one to you. Review your medication list with your nurse before leaving and if you need new prescriptions please let your nurse know. I may have made changes to your home medications or given you new prescriptions, please let your primary doctor know as well. Stay compliant with your medications and report any side effects to your PCP or pharmacist. Return to the ER if you have any concerns and cannot reach your doctors or call your insurance company, they usually have a nurse that can help you. 2. Call 911 or go to the nearest emergency room if experiencing loss of consciousness, dizziness, chest pain, shortness of breath, vomiting/abdominal pain, speech difficulties, motor weakness or any unusual symptoms. Primary Care Provider Care Physician No Primary Pending Labs Laboratory Tests Test 05/10/17 04:45 White Blood Count 7.710^3/ul (4.8-10.8) Red Blood Count 4.8710^6/ul (4.70-6.10) Hemoglobin 14.3g/dl (14.0-18.0) Hematocrit 43.1% (42.0-52.0) Mean Corpuscular Volume 88.5fl (82.0-101.0) Mean Corpuscular Hemoglobin 29.4pg (29.0-33.0) Mean Corpuscular Hemoglobin Concent 33.2g/dl (32.0-37.0) Red Cell Distribution Width 12.5% (11.5-14.5) Platelet Count 99975^3/UL (140-415) Mean Platelet Volume 11.9fl (7.4-10.4) Neutrophils % 85.9% (39.0-77.0) Lymphocytes % 10.3% (15.0-51.0) Monocytes % 3.4% (0.0-11.0) Eosinophils % 0.0% (0.0-7.0) Basophils % 0.1% (0.0-2.0) Nucleated Red Blood Cells % 0.0/100WBC (0.0-0.0) Neutrophils # 6.610^3/ul (1.6-7.5) Lymphocytes # 0.810^3/ul (0.8-2.9) Monocytes # 0.310^3/ul (0.3-0.9) Eosinophils # 0.010^3/ul (0.0-0.5) Basophils # 0.010^3/ul (0.0-0.1) Nucleated Red Blood Cells # 0.010^3/ul (0.0-0.0) Sodium Level 140mmol/L (135-144) Potassium Level 4.3mmol/L (3.5-5.1) Chloride Level 103mmol/L (97-110) Carbon Dioxide Level 25mmol/L (21-31) Anion Gap 16 (8-16) Blood Urea Nitrogen 11mg/dl (7-20) Creatinine 0.84mg/dl (0.61-1.24) Glucose Level 104mg/dl (70-220) Hemoglobin A1c 5.4% (0-5.9) Calcium Level 9.2mg/dl (8.4-10.2) Magnesium Level 1.8mg/dl (1.7-2.5) Total Bilirubin 0.7mg/dl (0.2-1.3) Direct Bilirubin 0.00mg/dl (0.00-0.20) Indirect Bilirubin 0.7mg/dl (0-1.1) Aspartate Amino Transf (AST/SGOT) 27IU/L (15-46) Alanine Aminotransferase (ALT/SGPT) 24IU/L (13-69) Alkaline Phosphatase 60IU/L (42-121) Total Protein 6.8g/dl (6.1-8.1) Albumin 3.8g/dl (3.3-4.9) Globulin 3.00g/dl (1.3-3.2) Albumin/Globulin Ratio 1.26 Triglycerides Level 42mg/dl (0-149) Cholesterol Level 153mg/dl (100-200) LDL Cholesterol, Calculated 91mg/dl HDL Cholesterol 54mg/dl (28-63) Cholesterol/HDL Ratio 2.8RATIO Thyroid Stimulating Hormone (TSH) 0.177MIU/L (0.465-4.680) FELIX HERNANDEZ NP May 10, 2017 10:48
== END 2017-05-10 12:30 | disposition home or self-care (01) | DRG 340 ==
LOC: FTE 18:05 → MS1 22:59
PROVIDERS: ADMIT Family Medicine; ATTEND Family Medicine
PROC: 0DTJ4ZZ Resection of Appendix, Percutaneous Endoscopic Approach (ICD-10-PCS; principal; 2017-05-09 19:00)
DX: K35.3 Acute appendicitis with localized peritonitis (principal); D72.829 Elevated white blood cell count, unspecified
CPT/HCPCS: 74177; 80053; 80061; 81001; 82150; 83036; 83690; 83735; 84443; 85025; 85610; 85730; 87040; 88304; J1100; J1885; J2175; J2405; J2543; J3010; J7030; Q9967